=== PATIENT | male | born 1990 | race Caucasian/White ===

== ENCOUNTER 2021-05-08 10:34 | Emergency (ER) | payer OTHER ==
[~2021-05-08] VITALS: Ht 188 cm; Wt 104.3 kg
[2021-05-08 10:35] VITALS: BP 140/87
[2021-05-08] MEDS ORDERED: LIDODERM1 EACH TOP (11:53)
[2021-05-08] MEDS ORDERED: MEDROLDOSEPACK PO (11:53)
[2021-05-08] MEDS ORDERED: METHOCARBAMOL500 M2 PO (11:53)
== END 2021-05-08 11:57 | disposition home or self-care (01) ==
LOC: ER 10:34
DX: M54.12 Radiculopathy, cervical region (principal); M54.16 Radiculopathy, lumbar region; G44.209 Tension-type headache, unspecified, not intractable; Z88.8 Allergy status to other drugs, medicaments and biological substances